=== PATIENT | male | born 1965 | race Two or more races ===

== ENCOUNTER 2023-07-20 18:11 | Inpatient (IN) | payer OTHER ==
[~2023-07-20] VITALS: Ht 231.1 cm; Wt 58.1 kg
[2023-07-20] MEDS ORDERED: SYNTHROID75 MCG PO (18:56)
[2023-07-20 21:07] LABS: HEMATOCRIT 39.5 % (39.0-48.0); HEMOGLOBIN 13.7 g/dL (13-16.00); MEAN CELL VOLUME 95.9 fL (80.0-100.00); MEAN CORPUSCULAR HEMOGLOBIN 33.1 pg (27.00-32.0); MEAN CORPUSCULAR HGB CONC 34.6 g/dl (32.0-36.0); RED BLOOD COUNT 4.12 M/uL (4.00-6.00); RED CELL DISTRIBUTION WIDTH 15.1 % (11.5-14.5)
[2023-07-20 21:32] LABS: PLATELET COUNT 30 K/uL (150-450)
[2023-07-20 21:33] LABS: ALBUMIN 2.7 gm/dL (3.4-5.0); BILIRUBIN TOTAL 1.23 mg/dL (0.3-1.2); CALCIUM 9.2 mg/dL (8.5-10.1); CREATININE SERUM 0.91 mg/dL (0.70-1.30); GFR 85.57; GLOBULINA 3.8 G/DL (2.4-3.5); TOTAL PROTEIN 6.5 gm/dL (6.4-8.2)
[2023-07-20 21:36] LABS: POTASSIUM 2.74 mEq/L (3.5-5.1)
[2023-07-20] MEDS ORDERED: POTASSIUM CHLORIDE/NACL 0.9% 20 MEQ/1,000 ML PIGGYBAG IV ONE (21:45)
[2023-07-20] MEDS ORDERED: CEFTRIAXONE SODIUM 2,000 MG in 0.9 % SODIUM CHLORIDE 100 ML IV SCH (23:39)
[2023-07-20] MEDS ORDERED: ONDANSETRON HCL 4 MG in 0.9 % SODIUM CHLORIDE 50 ML IV PRN (23:45)
[2023-07-20] MEDS ORDERED: METHYLPREDNISOLONE SOD SUCC 125 MG VIAL IV ONE (23:45)
[2023-07-20] MEDS ORDERED: 0.9 % SODIUM CHLORIDE 1,000 ML IV SCH (23:45)
[2023-07-20] MEDS ORDERED: ACETAMINOPHEN 500 MG GEL..CAP PO PRN (23:45)
[2023-07-21] MEDS ORDERED: POTASSIUM CHLORIDE IN WATER 100 ML IV SCH (01:00)
[2023-07-21] MEDS ORDERED: METRONIDAZOLE/SODIUM CHLORIDE 100 ML IV SCH (01:00)
[2023-07-21 01:34] LABS: ABG PH 7.479 (7.35-7.45); ABG PO2 91.5 mmHg (80-100); ABG pCO2 27.8 mmHg (35-45); BASE EXCESS -1.8 mmol/l; BICARBONATE 20.2 mmol/l (23-25); SaO2 97.7 %; Tco2 21.1 mmol/l; allen test SATISFACTORY; o2 21 %; puncture site RADIAL RIGHT
[2023-07-21 01:47] LABS: PH,URINE 6.5 (5.0-8.0); URINE APPEARANCE Cloudy; URINE BILIRRUBIN Negative (NEGATIVE); URINE BLOOD Large; URINE COLOR Yellow; URINE GLUCOSE Negative (NEGATIVE); URINE LEUKOCYTE Trace; URINE NITRATE Negative
[2023-07-21 01:50] LABS: URINE BACTERIA 22.6 uL (0.0-1933); URINE EPITHELIAL CELLS 3.2 uL (0.0-38.8); URINE RBC 5317.5 uL (0.0-20.8); URINE WBC 11.4 uL (0.0-23.2)
[2023-07-21 01:51] LABS: ERYTHROCYTE SEDIMENTATION RATE 22 mm/hr
[2023-07-21 02:01] LABS: PLT IN CITRATE 28 K/uL (150-450)
[2023-07-21 02:04] LABS: D DIMER 0.72 MG/L; INR 0.97; MAGNESIUM 1.8 mg/dL (1.8-2.4); PARTIAL THROMBOPLASTIN TIME 27.2 SECONDS (22.0-34.0); PHOSPHOROUS 2.6 mg/dL (2.5-4.9); PROTHROMBIN TIME 10.2 SECONDS (9.0-11.5)
[2023-07-21 02:19] LABS: URINE PROTEIN 100 (NEGATIVE)
[2023-07-21] MEDS ORDERED: LEVOTHYROXINE SODIUM 50 MCG TABLET PO SCH (06:00)
[2023-07-21 07:54] LABS: HEMATOCRIT 37.9 % (39.0-48.0); HEMOGLOBIN 13.1 g/dL (13-16.00); MEAN CELL VOLUME 95.2 fL (80.0-100.00); MEAN CORPUSCULAR HGB CONC 34.7 g/dl (32.0-36.0); RED BLOOD COUNT 3.98 M/uL (4.00-6.00); RED CELL DISTRIBUTION WIDTH 15.3 % (11.5-14.5)
[2023-07-21 07:57] LABS: PLATELET COUNT 31 K/uL (150-450)
[2023-07-21] MEDS ORDERED: PANTOPRAZOLE SODIUM 40 MG/VIAL VIAL IV SCH (09:00)
[2023-07-21] MEDS ORDERED: POTASSIUM CHLORIDE 20MEQ/100ML H2O PB IV ONE (20:30)
[2023-07-23 00:54] LABS: ALBUMIN 3.1 gm/dL (3.4-5.0); BILIRUBIN TOTAL 0.71 mg/dL (0.3-1.2); CREATININE SERUM 0.88 mg/dL (0.70-1.30); GFR 88.94; GLOBULINA 3.7 G/DL (2.4-3.5); POTASSIUM 3.65 mEq/L (3.5-5.1); TOTAL PROTEIN 6.8 gm/dL (6.4-8.2)
[2023-07-23 01:19] LABS: FERRITIN 285.4 NG/ML (26-388); PROSTATIC SPECIFIC ANTIGEN 1.57 NG/ML (0.010-4.00)
[2023-07-23 01:20] LABS: TSH 21.3 uIU/mL (0.358-3.74)
[2023-07-23 08:31] LABS: PLATELET ESTIMATE DECREASED (NORMAL)
[2023-07-24 14:07] LABS: CA 19-9 7 U/mL (0-35); HEPATITIS C VIRUS ANTIBODY Non Reactive (Non Reactive)
[2023-07-25] MEDS ORDERED: PANTOPRAZOLE SODIUM 40 MG TABLET.DR PO SCH (09:00)
[2023-07-25] MEDS ORDERED: TEMAZEPAM 15 MG CAPSULE PO SCH (21:00)
[2023-07-27 22:06] LABS: ALDOLASE 5.7 U/L (3.3-10.3)
== END 2023-07-25 15:08 | disposition home or self-care (01) | DRG 813 ==
LOC: ER 18:11 → MEDJ 07-21 00:13
PROVIDERS: Emergency Medicine; General Practice; ADMIT Specialist; ATTEND Specialist
PROC: BR20ZZZ Computerized Tomography (CT Scan) of Cervical Spine (ICD-10-PCS; principal; 2023-07-20)
PROC: BW28ZZZ Computerized Tomography (CT Scan) of Head (ICD-10-PCS; 2023-07-20)
PROC: BR30ZZZ Magnetic Resonance Imaging (MRI) of Cervical Spine (ICD-10-PCS; 2023-07-20)
PROC: BR37ZZZ Magnetic Resonance Imaging (MRI) of Thoracic Spine (ICD-10-PCS; 2023-07-21)
PROC: 4A12X4Z Monitoring of Cardiac Electrical Activity, External Approach (ICD-10-PCS; 2023-07-21)
DX: D69.6 Thrombocytopenia, unspecified (principal); A90 Dengue fever [classical dengue]; G12.20 Motor neuron disease, unspecified; M48.02 Spinal stenosis, cervical region
CPT/HCPCS: 72141; 72146